=== PATIENT | female | born 1950 | race Caucasian/White ===

== ENCOUNTER 2021-02-26 02:12 | Inpatient (IN) | payer MEDICARE, OTHER ==
[~2021-02-26] VITALS: Ht 165.1 cm; Wt 90.4 kg
[2021-02-26 02:19] VITALS: BP 141/45
[2021-02-26] MEDS ORDERED: QUETIAPINE FUM100 M3 PO (02:24)
[2021-02-26] MEDS ORDERED: GLIPIZIDE10 M2 PO (02:24)
[2021-02-26] MEDS ORDERED: FREESTYLE LITE1 EAC1 MC (02:24)
[2021-02-26] MEDS ORDERED: METFORMIN HYD1000 MG PO (02:24)
[2021-02-26] MEDS ORDERED: VERAPAMIL HCL120 M1 PO (02:24)
[2021-02-26 02:43] LABS: BASO % 0.2 % (0.0-1.0); EOS % 0.2 % (1.0-4.0); LYMPH # 0.6 10*3/uL (1.3-4.4); LYMPH % 10.1 % (27.0-41.0); MEAN CELL VOLUME 88.6 fl (81.0-99.0); MEAN CORPUSCULAR HGB 28.7 pg (27.0-31.0); MEAN CORPUSCULAR HGB CONC 32.4 g/dl (33.0-37.0); MEAN PLATELET VOLUME 8.7 fl (9.6-12.3); MONO % 0.3 % (3.0-9.0); NEUT # 5.2 10*3/uL (2.3-7.9); PLATELET COUNT AUTOMATED 350 10*3/uL (130-400); RED BLOOD COUNT 4.29 10*6/uL (4.10-5.10); RED CELL DISTRI WIDTH 12.4 % (0-14.5); WHITE BLOOD COUNT 5.8 10*3/uL (4.8-10.8)
[2021-02-26 03:02] LABS: ALBUMIN 3.5 gm/dl (3.1-4.5); ALKALINE PHOSPHATASE 87 U/L (45-117); BUN 16 mg/dl (7-24); CHLORIDE 102 mmol/L (98-107); CREATININE 1.01 mg/dL (0.55-1.02); POTASSIUM 3.4 mmol/L (3.5-5.1); SGOT/AST 15 IU/L (3-35); SGPT/ALT 25 U/L (12-78); SODIUM 135 mmol/L (136-145); TOTAL PROTEIN 6.9 gm/dL (6.4-8.2)
[2021-02-26 03:07] VITALS: BP 140/53
[2021-02-26 03:34] LABS: BILIRUBIN Negative (Negative); BLOOD Trace-Intact (Negative); CLARITY Cloudy (Clear); COLOR Yellow (Yellow); GLUCOSE Negative (Negative); KETONE 1+ (Negative); LEUKO ESTERASE 3+ (Negative); NITRITE Positive (Negative); UROBILINOGEN 0.2 E.U./dl (0.0-1.0)
[2021-02-26 03:52] LABS: BACTERIA 3+; WBC 41-50 wbc/hpf (0-5)
[2021-02-26 05:40] LABS: ALBUMIN 3.3 gm/dl (3.1-4.5); ALKALINE PHOSPHATASE 78 U/L (45-117); BUN 15 mg/dl (7-24); CHLORIDE 104 mmol/L (98-107); CHOLESTEROL 137 mg/dL (<200); CREATININE 1.04 mg/dL (0.55-1.02); FREE T4 0.96 ng/dl (0.76-1.46); LDL CHOLESTEROL 68 mg/dL (9-159); POTASSIUM 3.3 mmol/L (3.5-5.1); SGOT/AST 13 IU/L (3-35); SGPT/ALT 23 U/L (12-78); SODIUM 137 mmol/L (136-145); TOTAL PROTEIN 6.4 gm/dL (6.4-8.2); TRIGLYCERIDES 76 mg/dl (<150)
[2021-02-26 06:00] VITALS: BP 151/60
[2021-02-26 06:18] LABS: HEMATOCRIT 38.2 % (37.0-47.0); MEAN CORPUSCULAR HGB 28.7 pg (27.0-31.0); MEAN CORPUSCULAR HGB CONC 32.2 g/dl (33.0-37.0); MEAN PLATELET VOLUME 9.3 fl (9.6-12.3); PLATELET COUNT AUTOMATED 360 10*3/uL (130-400); RED BLOOD COUNT 4.29 10*6/uL (4.10-5.10); RED CELL DISTRI WIDTH 12.5 % (0-14.5)
[2021-02-26 07:28] LABS: TOTAL CELLS COUNTED 100 #CELLS
[2021-02-26 07:29] LABS: PLATELET SUFFICIENCY NORMAL (NORMAL)
[2021-02-26 07:35] LABS: THYROID STIM HORMONE (HS) 0.783 uIU/ml (0.358-4.75)
[2021-02-26 11:36] VITALS: BP 115/60
[2021-02-26 12:00] VITALS: BP 81/42
[2021-02-26 16:00] VITALS: BP 100/51
== END 2021-02-26 19:17 | disposition short-term general hospital (02) | DRG 872 ==
LOC: ED 02:12 → EDHOLD 04:26 → 5E 05:15
PROVIDERS: Internal Medicine; ADMIT Family Medicine; ATTEND Family Medicine
DX: A41.9 Sepsis, unspecified organism (principal); E87.1 Hypo-osmolality and hyponatremia; E87.2 Acidosis; N13.6 Pyonephrosis; R65.20 Severe sepsis without septic shock; E87.8 Other disorders of electrolyte and fluid balance, not elsewhere classified; E83.42 Hypomagnesemia; E11.65 Type 2 diabetes mellitus with hyperglycemia; R00.0 Tachycardia, unspecified; B96.89 Other specified bacterial agents as the cause of diseases classified elsewhere; E87.6 Hypokalemia; I10 Essential (primary) hypertension; Z90.710 Acquired absence of both cervix and uterus; Z87.891 Personal history of nicotine dependence; Z82.49 Family history of ischemic heart disease and other diseases of the circulatory system; Z82.0 Family history of epilepsy and other diseases of the nervous system; Z80.8 Family history of malignant neoplasm of other organs or systems

== ENCOUNTER → 2024-02-17 | Outpatient (CLI) | payer MEDICARE, OTHER ==
[~2024-02-17] MED LIST: FREESTYLE LITE1 EAC1 MC; GLIPIZIDE10 M2 PO; METFORMIN HYD1000 MG PO; QUETIAPINE FUM100 M3 PO; VERAPAMIL HCL120 M1 PO
== END | disposition home or self-care (01) ==
LOC: CARD 14:12
PROVIDERS: ATTEND Internal Medicine Cardiovascular Disease
DX: I35.8 Other nonrheumatic aortic valve disorders (principal); I31.39 Other pericardial effusion (noninflammatory)

== ENCOUNTER → 2024-02-23 | Outpatient (CLI) | payer MEDICARE, OTHER | END | disposition home or self-care (01) | LOC: RESCLI 01:59 | PROVIDERS: ATTEND Internal Medicine | DX: E11.9 Type 2 diabetes mellitus without complications (principal); I10 Essential (primary) hypertension; G62.9 Polyneuropathy, unspecified; G47.00 Insomnia, unspecified; I48.0 Paroxysmal atrial fibrillation; J44.9 Chronic obstructive pulmonary disease, unspecified; Z79.899 Other long term (current) drug therapy; Z88.8 Allergy status to other drugs, medicaments and biological substances; Z98.890 Other specified postprocedural states ==

== ENCOUNTER → 2024-03-28 | Outpatient (CLI) | payer MEDICARE, OTHER ==
[~2024-03-28] MED LIST changes: +ACTOS30 M1 PO; +DULE1ARO PO; +GLIPIZIDE10 M1 PO; +JANUVIA50 MG PO; +LANTUS SOL100 UNIT/1 SC; +MINOXIDIL2.5 MG PO; +Regadenoson 0.4 MG/5 ML SYR IV ONE; +VENT7GM INH; +VERAPAMIL HCL120 MG PO
[2024-03-28 12:56] LABS: BUN 12 mg/dl (9-23); CHLORIDE 103 mmol/L (98-107); POTASSIUM 4.1 mmol/L (3.4-5.1)
== END | disposition home or self-care (01) ==
LOC: CARD 02:07
PROVIDERS: ATTEND Internal Medicine
DX: I10 Essential (primary) hypertension (principal); R07.9 Chest pain, unspecified; R06.02 Shortness of breath

== ENCOUNTER → 2024-04-25 | Outpatient (CLI) | payer MEDICARE, OTHER ==
[~2024-04-25] MED LIST changes: -Regadenoson 0.4 MG/5 ML SYR IV ONE
== END | disposition home or self-care (01) ==
LOC: MRI 00:30
PROVIDERS: ATTEND Nurse Practitioner Family
DX: M75.101 Unspecified rotator cuff tear or rupture of right shoulder, not specified as traumatic (principal); M19.011 Primary osteoarthritis, right shoulder; M75.81 Other shoulder lesions, right shoulder; M25.511 Pain in right shoulder; G89.29 Other chronic pain

== ENCOUNTER → 2024-05-19 | Outpatient (CLI) | payer MEDICARE, OTHER | END | disposition home or self-care (01) | LOC: ORTHO 04:11 | PROVIDERS: ATTEND Orthopaedic Surgery | DX: M19.011 Primary osteoarthritis, right shoulder (principal); M25.811 Other specified joint disorders, right shoulder; M25.511 Pain in right shoulder ==

== ENCOUNTER 2025-07-24 20:54 | Emergency (ER) | payer MEDICARE, OTHER ==
[~2025-07-24] VITALS: Ht 165.1 cm; Wt 95.3 kg
[2025-07-24] MEDS ORDERED: PREDNISONE20 M1 PO (23:21)
[2025-07-24] MEDS ORDERED: Acetaminophen/Hydrocodone 5 MG/325 MG TABLET PO ONE (23:25)
== END 2025-07-24 23:25 | disposition home or self-care (01) ==
LOC: ED 20:54
DX: S22.32XA Fracture of one rib, left side, initial encounter for closed fracture (principal); I10 Essential (primary) hypertension; E11.9 Type 2 diabetes mellitus without complications; Z87.891 Personal history of nicotine dependence; Z90.710 Acquired absence of both cervix and uterus; W19.XXXA Unspecified fall, initial encounter; Y93.89 Activity, other specified; Y92.89 Other specified places as the place of occurrence of the external cause; Y99.8 Other external cause status